=== PATIENT | female | born 1990 | race Caucasian/White ===

== ENCOUNTER 2021-10-02 10:54 | Emergency (ER) | payer OTHER ==
[2021-10-02] MEDS ORDERED: Sodium Chloride 0.9% 1000 ML 1,000 ML IV STA (11:12)
[2021-10-02 11:15] VITALS: PULSE 93
[2021-10-02] MEDS ORDERED: Sodium Chloride 0.9% 1000 ML 1,000 ML ONE (11:23)
[2021-10-02] MEDS ORDERED: TORAdol 30 mg Injection IV ONE (11:26)
[2021-10-02] MEDS ORDERED: Compazine 10 MG/2 ML IV ONE (11:26)
[2021-10-02] MEDS ORDERED: TYLENOL 325 MG PO ONE (11:27)
[2021-10-02] MEDS ORDERED: TYLENOL 325 MG ONE (11:30)
[2021-10-02] MEDS ORDERED: TORAdol 30 mg Injection ONE (11:30)
[2021-10-02] MEDS ORDERED: Compazine 10 MG/2 ML ONE (11:30)
[2021-10-02 11:34] LABS: Basophil (Absolute #) 0.05 x10^3/uL (0-0.4); Eosinophil % 1.7 % (0.00-5.0); Eosinophil (Absolute #) 0.13 x10^3/uL (0-0.5); Hematocrit 41.3 % (35-47); Hemoglobin 13.6 g/dL (12.0-16.0); Lymphocyte (Absolute #) 2.65 x10^3/uL (1.0-4.6); Lymphocytes % 34.7 % (24.0-44.0); Mean Cell Volume 87.9 fL (78-100); Mean Corpuscular Hemoglobin 28.9 pg (26-32); Mean Corpuscular Hgb Concent. 32.9 g/dL (32-36); Mean Platelet Volume 9.9 fL (7.5-11.0); Monocyte (Absolute #) 0.49 x10^3/uL (0.0-1.3); Monocytes % 6.4 % (0.0-12.0); Neutrophil % 56.4 % (36.0-66.0); Platelet Count 363 x10^3/uL (150-450); Red Cell Distribution Width 12.5 % (11.5-14.0); White Blood Count 7.6 x10^3/uL (4.0-10.5)
[2021-10-02 11:54] LABS: ALBUMIN 5.1 g/dL (3.5-5.0); ALKALINE PHOSPHATASE 70 U/L (38-126); ANION GAP 15.7 MEQ/L (5-15); BLOOD UREA NITROGEN 12 mg/dL (7-17); CHLORIDE 101 mmol/L (98-107); Carbon Dioxide 26 mmol/L (22-30); Creatinine 1 0.73 mg/dL (0.52-1.04); EST GLOMERULAR FILTRATION RATE > 60.0 ML/MIN; Glucose 101 mg/dL (74-106); LIPASE 75 U/L (23-300); Potassium 3.7 mmol/L (3.5-5.1); SGOT/AST 26 U/L (14-36); SGPT/ALT 18 U/L (0-35); SODIUM 139 mmol/L (137-145); Total Protein 8.3 g/dL (6.3-8.2)
[2021-10-02 12:06] VITALS: BP 112/75; O2SAT 98
--- NOTE | 2021-10-02 12:31 | ERPHSYRPT ---
- History of Present Illness Time Seen by Provider: 10/02/21 11:15 Source: patient Exam Limitations: no limitations Patient Subjective Stated Complaint: Headache Triage Nursing Assessment: Patient ambulated back to ED and transferred self to bed. Patient A+ X3. Patient's skin pink, warm and dry. Patient complains of headache that started around 10 am yesterday and she is light and sound sensitive. She states headache is in front and goes around right side into back of head constant pressure 8/10. Patient complains of N/V. Physician History: Patient is 22-year-old female presents to emergency department for evaluation of a headache. Headache started yesterday approximately 10 AM. Patient states she has light and sound sensitivity. No trauma. No fever. No neck pain. No urinary symptomology mild photophobia. Patient has no meningeal signs. Patient is now nauseous. Patient vomited several times and noticed blood-tinged vomitus what prompted her to come to our ED. She otherwise feels well. No abdominal pain. No diarrhea. No rash. Patient otherwise healthy. Patient voices no other complaints concerns at this time. Timing/Duration: yesterday Severity: moderate Associated Symptoms: nausea, vomiting Allergies/Adverse Reactions: amoxicillin Allergy (Verified 10/02/21 11:04) cefaclor [From Ceclor] Allergy (Verified 10/02/21 11:04) cephalexin [From Keflex] Allergy (Verified 10/02/21 11:04) erythromycin base [From Erythrocin] Allergy (Verified 10/02/21 11:04) Penicillins Allergy (Verified 10/02/21 11:04) Home Medications: Hydroxyzine HCl 25 mg [Atarax 25 mg] 25 mg PO Q6HPRN PRN 10/02/21 [History] Hx Influenza Vaccination/Date Given: Yes Hx Pneumococcal Vaccination/Date Given: No Immunizations Up to Date: Yes Travel Risk - International Travel Have you traveled outside of the country in past 3 weeks: No - Coronavirus Screening Are you exhibiting any of the following symptoms?: No Close contact with a COVID-19 positive Pt in past 14-21 Days: No - Vaccine Status Have you recieved a Covid-19 vaccination: Yes Fruit Sorter: Moderna - Vaccination Dates Date of 2cond Vaccination (if applicable): na - Review of Systems Constitutional: No Symptoms, No Fever, No Chills Eyes: No Symptoms Ears, Nose, & Throat: No Symptoms Respiratory: No Symptoms, No Cough, No Dyspnea Cardiac: No Symptoms, No Chest Pain, No Edema, No Syncope Abdominal/Gastrointestinal: No Symptoms, No Abdominal Pain, No Nausea, No Vomiting, No Diarrhea Genitourinary Symptoms: No Symptoms, No Dysuria Musculoskeletal: No Symptoms, No Back Pain, No Neck Pain Skin: No Symptoms, No Rash Neurological: No Symptoms, No Dizziness, No Focal Weakness, No Sensory Changes Psychological: No Symptoms Endocrine: No Symptoms Hematologic/Lymphatic: No Symptoms Immunological/Allergic: No Symptoms All Other Systems: Reviewed and Negative - Past Medical History Pertinent Past Medical History: No Neurological History: No Pertinent History ENT History: No Pertinent History Cardiac History: No Pertinent History Respiratory History: No Pertinent History Endocrine Medical History: No Pertinent History Musculoskeletal History: No Pertinent History GI Medical History: No Pertinent History History: No Pertinent History Psycho-Social History: Depression Female Reproductive Disorders: No Pertinent History - Past Surgical History Past Surgical History: Yes Neuro Surgical History: No Pertinent History Cardiac: No Pertinent History Respiratory: No Pertinent History Gastrointestinal: No Pertinent History Genitourinary: No Pertinent History Musculoskeletal: No Pertinent History Female Surgical History: Tubal Ligation Other Surgical History: breast implants - Social History Smoking Status: Never smoker Exposure to second hand smoke: No Drug Use: none Patient Lives Alone: No - Female History Hx Last Menstrual Period: last weekend Hx Now: No - Nursing Vital Signs Nursing Vital Signs: Initial Vital Signs Temperature 98.6 F 10/02/21 11:05 Pulse Rate 93 H 10/02/21 11:05 Respiratory Rate 18 10/02/21 11:05 Blood Pressure 150/103 10/02/21 11:05 O2 Sat by Pulse Oximetry 100 10/02/21 11:05 Pain Scale Pain Intensity 0 - Physical Exam General Appearance: no apparent distress, alert Eye Exam: PERRL/EOMI, eyes nml inspection Ears, Nose, Throat Exam: normal ENT inspection, TMs normal, pharynx normal, moist mucous membranes Neck Exam: normal inspection, non-tender, supple, full range of motion Respiratory Exam: normal breath sounds, lungs clear, No respiratory distress Cardiovascular Exam: regular rate/rhythm, normal heart sounds, normal peripheral pulses Gastrointestinal/Abdomen Exam: soft, normal bowel sounds, No tenderness, No mass Back Exam: normal inspection, normal range of motion, No CVA tenderness, No v ertebral tenderness Extremity Exam: normal inspection, normal range of motion, pelvis stable Neurologic Exam: alert, oriented x 3, cooperative, normal mood/affect, nml cerebellar function, nml station & gait, sensation nml, No motor deficits Skin Exam: normal color, warm, dry, No rash Lymphatic Exam: No adenopathy SpO2 Interpretation: normal SpO2: 98 O2 Delivery: Room Air - Course Nursing assessment & vital signs reviewed: Yes Ordered Tests: Active Orders 24 hr Category Date Time Status IV Insertion STAT Care 10/02/21 11:12 Active CBC W DIFF Stat Lab 10/02/21 11:12 Completed CMP Stat Lab 10/02/21 11:12 Completed LIPASE Stat Lab 10/02/21 11:12 Completed TROPONIN Q3H Lab 10/02/21 11:15 Completed TROPONIN Q3H Lab 10/02/21 14:15 Ordered TROPONIN Q3H Lab 10/02/21 17:15 Ordered TROPONIN Q3H Lab 10/02/21 20:15 Ordered TROPONIN Q3H Lab 10/02/21 23:15 Ordered Medication Summary Discontinued Medications Generic Name Dose Route Start Last Admin Trade Name Freq PRN Reason Stop Dose Admin Acetaminophen 975 mg 10/02/21 11:27 10/02/21 11:33 Acetaminophen 325 Mg Tablet PO 10/02/21 11:28 975 mg STAT ONE Administration Acetaminophen Confirm 10/02/21 11:30 Acetaminophen 325 Mg Tablet Administered 10/02/21 11:31 Dose 975 mg .ROUTE .STK-MED ONE Sodium Chloride 1,000 mls @ 999 mls/hr 10/02/21 11:12 10/02/21 11:25 Sodium Chloride 0.9% 1000 Ml IV 10/02/21 12:12 999 mls/hr .Q1H1M STA Administration Sodium Chloride Confirm 10/02/21 11:23 Sodium Chloride 0.9% 1000 Ml Administered 10/02/21 11:24 Dose 1,000 mls @ ud .ROUTE .STK-MED ONE Ketorolac Tromethamine 30 mg 10/02/21 11:26 10/02/21 11:33 Ketorolac Tromethamine 30 Mg/Ml Inj IV 10/02/21 11:27 30 mg STAT ONE Administration Ketorolac Tromethamine Confirm 10/02/21 11:30 Ketorolac Tromethamine 30 Mg/Ml Inj Administered 10/02/21 11:31 Dose 30 mg .ROUTE .[facility] ONE Prochlorperazine Edisylate 10 mg 10/02/21 11:26 10/02/21 11:33 Prochlorperazine Edisylate 10 Mg/2 Ml Vial IV 10/02/21 11:27 10 mg STAT ONE Administration Prochlorperazine Edisylate Confirm 10/02/21 11:30 Prochlorperazine Edisylate 10 Mg/2 Ml Vial Administered 10/02/21 11:31 Dose 10 mg .ROUTE .[facility] ONE Lab/Rad Data: Laboratory Result Diagrams 10/02/21 11:12 10/02/21 11:12 Laboratory Results 10/02/21 10/02/21 10/02/21 Range/Units 11:15 11:12 11:12 WBC 7.6 (4.0-10.5) x10^3/uL RBC 4.70 (4.1-5.4) x10^6/uL Hgb 13.6 (12.0-16.0) g/dL Hct 41.3 (35-47) % MCV 87.9 (78-100) fL MCH 28.9 (26-32) pg MCHC 32.9 (32-36) g/dL RDW 12.5 (11.5-14.0) % Plt Count 363 (150-450) x10^3/uL MPV 9.9 (7.5-11.0) fL Gran % 56.4 (36.0-66.0) % Immature Gran % (Auto) 0.1 (0.00-0.4) % Nucleat RBC Rel Count 0.0 (0.00-0.1) % Eos # (Auto) 0.13 (0-0.5) x10^3/uL Immature Gran # (Auto) 0.01 (0.00-0.03) x10^3u/L Absolute Lymphs (auto) 2.65 (1.0-4.6) x10^3/uL Absolute Monos (auto) 0.49 (0.0-1.3) x10^3/uL Absolute Nucleated RBC 0.00 (0.00-0.01) x10^3u/L Lymphocytes % 34.7 (24.0-44.0) % Monocytes % 6.4 (0.0-12.0) % Eosinophils % 1.7 (0.00-5.0) % Basophils % 0.7 (0.0-0.4) % Absolute Granulocytes 4.30 (1.4-6.9) x10^3/uL Basophils # 0.05 (0-0.4) x10^3/uL Sodium 139 (137-145) mmol/L Potassium 3.7 (3.5-5.1) mmol/L Chloride 101 (98-107) mmol/L Carbon Dioxide 26 (22-30) mmol/L Anion Gap 15.7 H (5-15) MEQ/L BUN 12 (7-17) mg/dL Creatinine 0.73 (0.52-1.04) mg/dL Estimated GFR > 60.0 ML/MIN Glucose 101 (74-106) mg/dL Calcium 10.0 (8.4-10.2) mg/dL Total Bilirubin 1.10 (0.2-1.3) mg/dL AST 26 (14-36) U/L ALT 18 (0-35) U/L Alkaline Phosphatase 70 (38-126) U/L Troponin I < 0.012 (0.000-0.034) ng/mL Serum Total Protein 8.3 H (6.3-8.2) g/dL Albumin 5.1 H (3.5-5.0) g/dL Lipase 75 (23-300) U/L - Progress Progress: improved Progress Note: Patient reassessed. Headache essentially resolved. He states he is ready for discharge. No nausea or vomiting in our ED. Patient agrees to follow-up with her primary care doctor within 48 hours for evaluation. Portions of this note were created with voice recognition technology. There may be grammatical, spelling, punctuation or sound alike errors 10/02/21 12:30 Laboratory work-up essentially nonremarkable 10/02/21 12:31 Counseled pt/family regarding: lab results, diagnosis, need for follow-up - Departure Departure Disposition: Home Clinical Impression: Migraine, Vomiting Condition: Stable Critical Care Time: No Referrals: SHAYY JULIEN CARDIOTHORACIC PHYSIOTHERAPIST [Primary Care Provider] - Follow up/PCP as directed Instructions: Headache, Adult Additional Instructions: Discharge/Care Plan ESSIE,BOB K was seen on 10/02/21 in the Emergency Room. The patient was counseled regarding Diagnosis,Lab results, Imaging studies, need for follow up and when to return to the Emergency Room. Prescriptions given: Discharge Note I have spoken with the patient and/or caregivers. I have explained the patient's condition, diagnosis and treatment plan based on the information available to me at this time. I have answered the patient's and/or caregiver's questions and addressed any concerns. The patient and/or caregivers have as good understanding of the patient's diagnosis, condition and treatment plan as can be expected at this point. The vital signs have been stable. The patient's condition is stable and appropriate for discharge from the emergency department. The patient will pursue further outpatient evaluation with the primary care physician or other designated or consulting physician as outlined in the discharge instructions. The patient and/or caregivers are agreeable to this plan of care and follow-up instructions have been explained in detail. The patient and/or caregivers have received these instruction. The patient/and or caregivers are aware that any significant change in condition or worsening of symptoms should prompt an immediate return to this or the closest emergency department or call 911.
== END 2021-10-02 12:28 | disposition home or self-care (01) ==
LOC: ED 10:54
DX: G43.909 Migraine, unspecified, not intractable, without status migrainosus (principal); H53.143 Visual discomfort, bilateral; R11.2 Nausea with vomiting, unspecified
CPT/HCPCS: 36000; 36415; 80053; 83690; 84484; 85025; 96360; 96374; 96375; 99284; J1885; A9270-GY

== ENCOUNTER 2023-11-15 22:15 | Emergency (ER) | payer BC, OTHER ==
[2023-11-15 22:38] VITALS: TEMP 97.7
--- NOTE | 2023-11-15 22:47 | ERPHSYRPT ---
- History of Present Illness Time Seen by Provider: 11/15/23 22:38 Historian: patient, family Exam Limitations: no limitations Patient Subjective Stated Complaint: low abd pain, pt has hx of ovarian cysts and believes one ruptured about 10 days ago, pt states she started getting a rash on bilateral upper thighs that radiates to lower abd as well. Triage Nursing Assessment: pt ambulatory to bed by self with spouse at bedside, pt alert and oriented x3, pt c/o low abd pain/pelvic pain that has been intermittent x 10 days, fine rash noted on upper thighs and lower abdomen, pt states she did vomit yesterday. Physician History: pt had ovarian cyst rupture 10 days ago and has had and has had a dermoid cyst for 2 years, but now with RLQ pain in that area. same as the cyst pain. also rash both groin and up rLQ abd fine erythematous burning. She has had N and V yesterday. Abd soft nontender withotu peritoneal signs or masses. No reported vag DC or symptoms. No urinary symptoms. No hx trauma. Chest clear nno wheezes. No hx sobreath or swallowing symptoms. swallowing OK in ER and pharynx clear without erythema. No exposures known or new clothes or meds. Spouse is in ER as independent source of Hx. Discussed risks/benefits of testing and Tx including US, IVF, Pain med, Zofran, CBC, CMP, HCG, UA, Lipase , Amylase, Lactate, and they wish to proceed adn these are ordered. results discussed with pt and spouse. Timing/Duration: day(s) Activities at Onset: none Quality: fullness, pressure, sharpness Abdominal Pain Onset Location: RLQ Pain Radiation: back Severity of Pain-Max: moderate Severity of Pain-Current: moderate Modifying Factors: Improves With: nothing Associated Symptoms: back, rash Previous symptoms: same symptoms as today, recently seen, recently treated Allergies/Adverse Reactions: amoxicillin Allergy (Verified 11/15/23 22:26) cefaclor [From Ceclor] Allergy (Verified 11/15/23 22:26) cephalexin [From Keflex] Allergy (Verified 11/15/23 22:26) erythromycin base [From Erythrocin] Allergy (Verified 11/15/23 22:26) Penicillins Allergy (Verified 11/15/23 22:26) Home Medications: Hydroxyzine HCl 25 mg [Atarax 25 mg] 1 tab PO HS 11/15/23 [History] Methylphenidate HCl [Jornay Pm] 1 tab PO 11/15/23 [History] Propranolol HCl 1 tab PO 11/15/23 [History] Sertraline HCl 50 mg [Zoloft 50 mg Tablet] 1 tab PO 11/15/23 [History] Hx Tetanus, Diphtheria Vaccination/Date Given: Yes Hx Influenza Vaccination/Date Given: No Hx Pneumococcal Vaccination/Date Given: No Travel Risk - International Travel Have you traveled outside of the country in past 3 weeks: No - Emerging Infectious Disease Are you exhibiting symptoms associated with any current EIDs: Yes Symptoms: Abdominal Pain, Vomitting - Review of Systems Constitutional: No Fever, No Chills Eyes: No Symptoms Ears, Nose, & Throat: No Symptoms Respiratory: No Cough, No Dyspnea Cardiac: No Chest Pain, No Edema, No Syncope Abdominal/Gastrointestinal: Abdominal Pain, Nausea, Vomiting, No Diarrhea Genitourinary Symptoms: No Dysuria Musculoskeletal: No Back Pain, No Neck Pain Skin: No Rash Neurological: No Dizziness, No Focal Weakness, No Sensory Changes Psychological: No Symptoms Endocrine: No Symptoms All Other Systems: Reviewed and Negative - Past Medical History Pertinent Past Medical History: Yes Neurological History: No Pertinent History ENT History: No Pertinent History Cardiac History: No Pertinent History Respiratory History: No Pertinent History Endocrine Medical History: No Pertinent History Musculoskeletal History: No Pertinent History GI Medical History: No Pertinent History History: No Pertinent History Psycho-Social History: Depression Female Reproductive Disorders: Other Other Medical History: ovarian cysts - Past Surgical History Past Surgical History: Yes Neuro Surgical History: No Pertinent History Cardiac: No Pertinent History Respiratory: No Pertinent History Gastrointestinal: No Pertinent History Genitourinary: No Pertinent History Musculoskeletal: No Pertinent History Female Surgical History: Tubal Ligation Other Surgical History: breast implants - Female History Hx Last Menstrual Period: 10/25/23 Hx Now: No - Social History Smoking Status: Never smoker Exposure to second hand smoke: No Drug Use: none Patient Lives Alone: No - Social Determinants of Health Will the patient participate in the screening: Yes Do you worry about a steady place to live?: No Do you have any problems with any of the following?: No known problems In the past 12 months,have you had to go without utilities?: No Transportation Issues: No Has anyone in your support network made you feel unsafe?: No Have you or anyone in your house had to go without enough: No - Nursing Vital Signs Nursing Vital Signs: Initial Vital Signs Temperature 97.7 F 11/15/23 22:28 Pulse Rate 80 11/15/23 22:28 Respiratory Rate 17 11/15/23 22:28 Blood Pressure 166/108 11/15/23 22:28 O2 Sat by Pulse Oximetry 97 11/15/23 22:28 Pain Scale Pain Intensity 3 - Physical Exam General Appearance: no apparent distress, alert Eye Exam: PERRL/EOMI, eyes nml inspection Ears, Nose, Throat Exam: normal ENT inspection, pharynx normal, moist mucous membranes Neck Exam: normal inspection, non-tender, supple, full range of motion Respiratory Exam: normal breath sounds, lungs clear, No respiratory distress Cardiovascular Exam: regular rate/rhythm, normal heart sounds Gastrointestinal/Abdomen Exam: soft, No tenderness, No distention, No mass, No guarding, No pulsatile mass, No rebound Pelvic Exam: deferred Rectal Exam: deferred Back Exam: normal inspection, normal range of motion, No CVA tenderness, No vertebral tenderness Extremity Exam: normal inspection, normal range of motion, pelvis stable Neurologic Exam: alert, oriented x 3, cooperative, normal mood/affect, nml cerebellar function, sensation nml, No motor deficits Skin Exam: normal color, warm, dry SpO2 Interpretation: normal SpO2: 97 O2 Delivery: Room Air - Course Nursing assessment & vital signs reviewed: Yes - Radiology Ultrasound Exam Pelvis Ultrasound: discussed w/radiologist, No Torsion/Nml Flow, Other (no remaining cysts in ovaries noted on US report. ) Ordered Tests: Active Orders 24 hr Category Date Time Status IV Insertion STAT Care 11/15/23 22:39 Active PELVIS TRANS VAGINAL [US] Stat Exams 11/15/23 22:38 Taken AMYLASE Stat Lab 11/15/23 23:03 Completed CBC W DIFF Stat Lab 11/15/23 23:03 Completed CMP Stat Lab 11/15/23 23:03 Completed HCG QUALITATIVE, SERUM Stat Lab 11/15/23 23:03 Completed LIPASE Stat Lab 11/15/23 23:03 Completed Lactic Acid Stat Lab 11/15/23 22:50 Completed UA W/RFX UR CULTURE Stat Lab 11/15/23 22:42 Completed Medication Summary Discontinued Medications Generic Name Dose Route Start Last Admin Trade Name Marysol PRN Reason Stop Dose Admin Hydromorphone HCl 0.5 mg 11/15/23 22:39 11/15/23 22:58 Hydromorphone 1 Mg/1ml Inj IV 11/15/23 22:40 0.5 mg STAT ONE Administration Hydromorphone HCl Confirm 11/15/23 22:55 Hydromorphone 1 Mg/1ml Inj Administered 11/15/23 22:56 Dose 1 mg .ROUTE .STK-MED ONE Sodium Chloride 1,000 mls @ 999 mls/hr 11/15/23 22:39 11/15/23 23:59 Sodium Chloride 0.9% 1000 Ml IV 11/15/23 23:39 Infused .Q1H1M STA Infusion Sodium Chloride Confirm 11/15/23 22:55 Sodium Chloride 0.9% 1000 Ml Administered 11/15/23 22:56 Dose 1,000 mls @ ud .ROUTE .STK-MED ONE Ondansetron HCl 4 mg 11/15/23 22:39 11/15/23 22:58 Ondansetron Hcl 4 Mg/2 Ml Vial IV 11/15/23 22:40 4 mg STAT ONE Administration Ondansetron HCl Confirm 11/15/23 22:54 Ondansetron Hcl 4 Mg/2 Ml Vial Administered 11/15/23 22:55 Dose 4 mg .ROUTE .STK-MED ONE Lab/Rad Data: Laboratory Result Diagrams 11/15/23 23:03 11/15/23 23:03 Laboratory Results 11/15/23 11/15/23 11/15/23 Range/Units 23:03 23:03 23:03 WBC 8.8 (3.98-10.04) x10^3/uL RBC 4.45 (3.93-5.22) x10^6/uL Hgb 13.1 (11.2-15.7) g/dL Hct 39.1 (34.1-44.9) % MCV 87.9 (79.4-94.8) fL MCH 29.4 (25.6-32.2) pg MCHC 33.5 (32.2-35.5) g/dL RDW 12.3 (11.7-14.4) % Plt Count 304 (182-369) x10^3/uL MPV 10.0 (9.4-12.3) fL Gran % 54.1 (34.0-71.1) % Immature Gran % (Auto) 0.1 (0.001-0.429) % Nucleat RBC Rel Count 0.0 (0.00-0.2) % Eos # (Auto) 0.24 (0.04-0.36) x10^3/uL Immature Gran # (Auto) 0.01 (0.001-0.031) x10^3u/L Absolute Lymphs (auto) 2.87 (1.18-3.74) x10^3/uL Absolute Monos (auto) 0.87 H (0.24-0.86) x10^3/uL Absolute Nucleated RBC 0.00 (0.00-0.012) x10^3u/L Lymphocytes % 32.7 (19.3-51.7) % Monocytes % 9.9 (4.7-12.5) % Eosinophils % 2.7 (0.7-5.8) % Basophils % 0.5 (0.1-1.2) % Absolute Granulocytes 4.76 (1.56-6.13) x10^3/uL Basophils # 0.04 (0.01-0.08) x10^3/uL Sodium 140 (135-145) mmol/L Potassium 3.7 (3.5-5.1) mmol/L Chloride 101 (98-107) mmol/L Carbon Dioxide 28 (22-30) mmol/L Anion Gap 15.1 H (5-15) MEQ/L BUN 10 (7-17) mg/dL Creatinine 0.68 (0.52-1.04) mg/dL Estimated GFR 119.3 ML/MIN Glucose 77 (74-106) mg/dL Lactic Acid (0.4-2.0) Calcium 9.8 (8.4-10.2) mg/dL Total Bilirubin 0.60 (0.2-1.3) mg/dL AST 48 H (14-36) U/L ALT 38 H (0-35) U/L Alkaline Phosphatase 59 (38-126) U/L Serum Total Protein 8.5 H (6.3-8.2) g/dL Albumin 5.0 (3.5-5.0) g/dL Amylase 91 (30-110) U/L Lipase 102 (23-300) U/L Serum HCG, Qual NEGATIVE (NEGATIVE) Urine Color (Yellow) Urine Appearance (Clear) Urine pH (4.6-8.0) Ur Specific [place] (1.005-1.030) Urine Protein (Negative) Urine Glucose (UA) (Negative) mg/dL Urine Ketones (Negative) Urine Blood (Negative) Urine Nitrite (Negative) Urine Bilirubin (Negative) Urine Urobilinogen (0.2) mg/dL Ur Leukocyte Esterase (Negative) U Hyaline Cast (Auto) (0-2) /LPF Urine Microscopic RBC (0-5) /HPF Urine Microscopic WBC (0-5) /HPF Ur Epithelial Cells (None Seen) /HPF Urine Bacteria (None Seen) /HPF Urine Culture Reflexed (NO) 11/15/23 11/15/23 Range/Units 22:50 22:42 WBC (3.98-10.04) x10^3/uL RBC (3.93-5.22) x10^6/uL Hgb (11.2-15.7) g/dL Hct (34.1-44.9) % MCV (79.4-94.8) fL MCH (25.6-32.2) pg MCHC (32.2-35.5) g/dL RDW (11.7-14.4) % Plt Count (182-369) x10^3/uL MPV (9.4-12.3) fL Gran % (34.0-71.1) % Immature Gran % (Auto) (0.001-0.429) % Nucleat RBC Rel Count (0.00-0.2) % Eos # (Auto) (0.04-0.36) x10^3/uL Immature Gran # (Auto) (0.001-0.031) x10^3u/L Absolute Lymphs (auto) (1.18-3.74) x10^3/uL Absolute Monos (auto) (0.24-0.86) x10^3/uL Absolute Nucleated RBC (0.00-0.012) x10^3u/L Lymphocytes % (19.3-51.7) % Monocytes % (4.7-12.5) % Eosinophils % (0.7-5.8) % Basophils % (0.1-1.2) % Absolute Granulocytes (1.56-6.13) x10^3/uL Basophils # (0.01-0.08) x10^3/uL Sodium (135-145) mmol/L Potassium (3.5-5.1) mmol/L Chloride (98-107) mmol/L Carbon Dioxide (22-30) mmol/L Anion Gap (5-15) MEQ/L BUN (7-17) mg/dL Creatinine (0.52-1.04) mg/dL Estimated GFR ML/MIN Glucose (74-106) mg/dL Lactic Acid 1.6 (0.4-2.0) Calcium (8.4-10.2) mg/dL Total Bilirubin (0.2-1.3) mg/dL AST (14-36) U/L ALT (0-35) U/L Alkaline Phosphatase (38-126) U/L Serum Total Protein (6.3-8.2) g/dL Albumin (3.5-5.0) g/dL Amylase (30-110) U/L Lipase (23-300) U/L Serum HCG, Qual (NEGATIVE) Urine Color Yellow (Yellow) Urine Appearance Clear (Clear) Urine pH 7.0 (4.6-8.0) Ur Specific [place] <=1.005 (1.005-1.030) Urine Protein Negative (Negative) Urine Glucose (UA) Negative (Negative) mg/dL Urine Ketones Negative (Negative) Urine Blood Negative (Negative) Urine Nitrite Negative (Negative) Urine Bilirubin Negative (Negative) Urine Urobilinogen 1.0 A (0.2) mg/dL Ur Leukocyte Esterase Negative (Negative) U Hyaline Cast (Auto) NONE SEEN (0-2) /LPF Urine Microscopic RBC 0-2 (0-5) /HPF Urine Microscopic WBC 0-2 (0-5) /HPF Ur Epithelial Cells Rare (None Seen) /HPF Urine Bacteria Few A (None Seen) /HPF Urine Culture Reflexed NO (NO) - Progress Progress: improved, re-examined Progress Note: 11/16/23 00:22 repeat exam is nontender in RLQ and pt states that the pain is gone. I advised pt and spouse that we have not determined a cause for her pain and symptoms and that pathology, including appendicitis could still be evolving. undetected. They are most comfortable with outpt f/u with PMDs without further w/u in ER including CT to r/u appe ( radiation risks discussed and they wish to hold off- snow since symptoms have resolved) or admission at this time and have the capacity to make this choice. Counseled pt/family regarding: lab results, diagnosis, need for follow-up, rad results Medical Desision Making - Independent Historian Additional History obtained from: Spouse - Discussion of managment Reviewed:: Test results, Need for additional workup Agreed on:: Treatment plan, need for follow-up - Diagnostic Testing Diagnostic test were ordered, analyzed, and reviewed by me: Yes Radiological Interpretation: Reviewed by me - Risk of complications The pt has a mod risk of morbidity or mortality based on: Need for prescription drug management The pt has a high risk of morbidity or mortality based on: Decision regarding hospitilization or escalation of hosp level of care - Departure Departure Disposition: Home Clinical Impression: Abdominal pain / vomiting unknown cause, elevated blood pressure Condition: Good Critical Care Time: No Referrals: SHAYY JULIEN WHIRLEY OPERATOR [Primary Care Provider] - Follow up/PCP as directed Instructions: Pelvic Pain (DC), Abdominal Pain, Adult ED, Ovarian Cyst ED Additional Instructions: Although the ultrasound was negative and the blood tests not indicating concerns, there still could be conditions developing undetected and so followup with your Dr. is important and you should return meantime if symptoms of concern recur. You do have minor elevations of the liver tests to also followup with your Dr for, as well as some elevated blood pressure that should be rechecked and to see your Dr. for if it remains elevated.
[2023-11-15] MEDS ORDERED: Zofran 4 MG/2 ML VIAL ONE (22:54)
[2023-11-15] MEDS ORDERED: Sodium Chloride 0.9% 1000 ML 1,000 ML ONE (22:55)
[2023-11-15] MEDS ORDERED: Hydromorphone 1 mg/ml Injection ONE (22:55)
[2023-11-15] MEDS: Hydromorphone 1 mg/ml Injection IV ONE (22:58)
[2023-11-15] MEDS: Zofran 4 MG/2 ML VIAL IV ONE (22:58)
[2023-11-15] MEDS: Sodium Chloride 0.9% 1000 ML 1,000 ML IV STA (22:58)
[2023-11-15 23:06] LABS: Absolute Neutrophil Ct (ANC) 4.76 x10^3/uL (1.56-6.13); BASOPHIL % 0.5 % (0.1-1.2); Basophil (Absolute #) 0.04 x10^3/uL (0.01-0.08); Eosinophil % 2.7 % (0.7-5.8); Eosinophil (Absolute #) 0.24 x10^3/uL (0.04-0.36); Hematocrit 39.1 % (34.1-44.9); Hemoglobin 13.1 g/dL (11.2-15.7); IMMATURE GRAN # 0.01 x10^3u/L (0.001-0.031); IMMATURE GRAN % 0.1 % (0.001-0.429); Lymphocyte (Absolute #) 2.87 x10^3/uL (1.18-3.74); Lymphocytes % 32.7 % (19.3-51.7); Mean Cell Volume 87.9 fL (79.4-94.8); Mean Corpuscular Hemoglobin 29.4 pg (25.6-32.2); Mean Corpuscular Hgb Concent. 33.5 g/dL (32.2-35.5); Monocyte (Absolute #) 0.87 x10^3/uL (0.24-0.86); Monocytes % 9.9 % (4.7-12.5); Neutrophil % 54.1 % (34.0-71.1); Platelet Count 304 x10^3/uL (182-369); Red Blood Count 4.45 x10^6/uL (3.93-5.22); Red Cell Distribution Width 12.3 % (11.7-14.4); White Blood Count 8.8 x10^3/uL (3.98-10.04)
[2023-11-15 23:13] LABS: Appearance Clear (Clear); Bacteria Few /HPF (None Seen); Bilirubin Negative (Negative); Blood Negative (Negative); Epithelial Cells Rare /HPF (None Seen); Glucose, Urine Negative (Negative); Hyaline Casts NONE SEEN /LPF (0-2); Ketones Negative (Negative); Leukocyte Esterase Negative (Negative); Nitrite Negative (Negative); Protein,Urine Dip Negative (Negative); RBC 0-2 /HPF (0-5); Specific Gravity <=1.005 (1.005-1.030); WBC 0-2 /HPF (0-5)
[2023-11-15 23:19] LABS: ANION GAP 15.1 MEQ/L (5-15); BILIRUBIN,TOTAL 0.6 mg/dL (0.2-1.3); Calcium 9.8 mg/dL (8.4-10.2); Creatinine 1 0.68 mg/dL (0.52-1.04); EST GLOMERULAR FILTRATION RATE 119.3 ML/MIN; Potassium 3.7 mmol/L (3.5-5.1); Total Protein 8.5 g/dL (6.3-8.2)
[2023-11-15 23:25] LABS: ADD URINE CULTURE? NO (NO)
[2023-11-15 23:30] LABS: HCG SERUM TEST NEGATIVE (NEGATIVE)
[2023-11-15 23:51] VITALS: PULSE 61
[2023-11-16 00:04] VITALS: BP 136/99; RESP 16
[2023-11-16 00:22] VITALS: O2SAT 97
--- NOTE | 2023-11-16 06:47 | XRAY ---
Indication: Intermittent pain. Ovary cyst. Torsion. 2-dimensional transvaginal pelvic sonogram performed. Comparison: None Uterus anteverted measuring 10.2 x 3.8 x 5.9 cm. Lower uterine segment demonstrates 4 mm nabothian cyst. Endometrial stripe measures 6.1 mm. No endometrial cavity mass or fluid collection. Right ovary measures 4.6 x 2.2 x 4.0 cm and left measures 4.3 x 2.1 x 3.6 cm. Normal follicular cysts and perfusion bilaterally. No suspicious adnexal mass or free fluid. Impression: Tiny nabothian cyst. Remaining transvaginal pelvic sonogram is negative. Comment: Preliminary report was given.
== END 2023-11-16 00:41 | disposition home or self-care (01) ==
LOC: ED 22:15
DX: R10.31 Right lower quadrant pain (principal); R11.2 Nausea with vomiting, unspecified; R03.0 Elevated blood-pressure reading, without diagnosis of hypertension; R21 Rash and other nonspecific skin eruption; Z79.899 Other long term (current) drug therapy
CPT/HCPCS: 36000; 36415; 76830; 80053; 81001; 82150; 83605; 83690; 84703; 85025; 96374; 96375; 99284; J1170; J2405